=== PATIENT | female | born 1930 | race Caucasian/White ===

== ENCOUNTER → 2016-09-30 | Outpatient (CLI) | payer OTHER ==
[2016-09-30 08:51] LABS: Basophils # (auto) 0 uL; Basophils % (auto) 0.5 % (0.0-2.0); Eosinophils # (auto) 0.1 uL; Eosinophils % (auto) 1.3 % (0.0-7.0); Hematocrit 43.3 % (36.0-46.0); Hemoglobin 14.3 g/dL (12.2-16.2); Lymphocytes # (auto) 1.4 uL; Lymphocytes % (auto) 20.3 % (10.0-50.0); Mean Corpuscular Hemoglobin 28.8 pg (28.0-32.0); Mean Corpuscular Hgb Conc. 32.9 g/dL (32.0-36.0); Mean Corpuscular Volume 87.7 fL (80.0-100.0); Mean Platelet Volume 7.9 fL (7.4-10.4); Monocytes # (auto) 0.6 uL; Monocytes % (auto) 8.3 % (0.0-12.0); Neutrophils # (auto) 4.7 uL; Neutrophils % (auto) 69.6 % (37.0-80.0); Platelet Count (auto) 356 10^3/uL (140-450); Red Cell Distribution Width 14.2 % (11.6-16.0); White Blood Cell 6.8 10^3/uL (4.4-10.8)
[2016-09-30 09:02] LABS: Urine Bilirubin Negative (Negative); Urine Color Yellow (Yellow); Urine Glucose Normal (Normal); Urine Hyaline Cast FEW /lpf (0 - 2); Urine Ketone Negative (Negative); Urine Mucus FEW (None Seen); Urine Nitrite Negative (Negative); Urine RBC 4 /hpf (0 - 4); Urine Squamous Epithelial Cell FEW /hpf (<5); Urine Urobilinogen Normal (Negative)
[2016-09-30 09:05] LABS: Albumin 3.6 g/dL (3.4-5.0); BUN/Creatinine Ratio 14.9; Calcium 8.4 mg/dL (8.5-10.1); Potassium 3.7 mmol/L (3.5-5.1); Total Protein 8.2 g/dL (6.4-8.2)
[2016-09-30 09:16] LABS: Urine Blood 1+ /uL (Negative)
== END | disposition home or self-care (01) ==
LOC: LAB 08:01
DX: I10 Essential (primary) hypertension (principal)
CPT/HCPCS: 36415; 80053; 80061; 81001; 84443; 85025

== ENCOUNTER 2017-02-27 12:10 | Inpatient (IN) | payer OTHER ==
[~2017-02-27] VITALS: Ht 165.1 cm; Wt 77.5 kg
[2017-02-27 12:59] VITALS: BP 112/75
[2017-02-27] MEDS ORDERED: CYCL0.05 EACHEYE (13:21)
[2017-02-27] MEDS ORDERED: LEV50T PO (13:21)
[2017-02-27] MEDS ORDERED: VER40T PO (13:21)
[2017-02-27] MEDS ORDERED: FLUT500M2 INH (13:21)
[2017-02-27] MEDS ORDERED: MORPHINE SULF INJ 2 MG/ML SYRINGE 1ML IV PRN ×2 (13:30→14:30)
[2017-02-27] MEDS ORDERED: NITROGLYCERIN 0.4 MG SL TAB SL PRN ×2 (13:30→14:30)
[2017-02-27] MEDS ORDERED: ONDANSETRON HCL 4 MG/2 ML VIAL IV PRN (14:30)
[2017-02-27] MEDS ORDERED: LEVOTHYROXINE SODIUM 50 MCG TAB PO ONE (14:45)
[2017-02-27] MEDS ORDERED: VERAPAMIL HCL 40 MG TAB PO ONE (14:45)
[2017-02-27] MEDS ORDERED: BUDESONIDE (INHALATION) 0.5 MG/2 ML NEB NEB ONE (14:45)
[2017-02-27 17:00] VITALS: BP 146/98
[2017-02-27] MEDS ORDERED: PNEUMOCOCCAL VACC POLYS 25 MCG/0.5 ML VIAL IM ONE (17:15)
[2017-02-27] MEDS: MORPHINE SULF INJ 2 MG/ML SYRINGE 1ML IV PRN (18:21)
[2017-02-27 19:11] LABS: Urine Bilirubin Negative (Negative); Urine Blood 3+ /uL (Negative); Urine Color PINK (Yellow); Urine Glucose Normal (Normal); Urine Ketone 2+ (Negative); Urine Mucus FEW (None Seen); Urine Nitrite Negative (Negative); Urine RBC 206 /hpf (0 - 4); Urine pH 5.5 (5.0-8.0)
[2017-02-27 20:00] VITALS: BP 135/83
[2017-02-27 22:00] VITALS: BP 135/83
[2017-02-27] MEDS: VERAPAMIL HCL 40 MG TAB PO SCH (22:09)
[2017-02-27] MEDS: BUDESONIDE (INHALATION) 0.5 MG/2 ML NEB NEB SCH (22:21)
[2017-02-28 03:09] VITALS: BP 135/83
[2017-02-28 05:00] VITALS: BP 156/102
[2017-02-28 05:55] LABS: Basophils # (auto) 0 uL; Basophils % (auto) 0.3 % (0.0-2.0); CONDITION Y; Eosinophils # (auto) 0.2 uL; Eosinophils % (auto) 1.8 % (0.0-7.0); Hematocrit 37.8 % (36.0-46.0); Hemoglobin 12.7 g/dL (12.2-16.2); Lymphocytes # (auto) 0.7 uL; Lymphocytes % (auto) 7.4 % (10.0-50.0); Mean Corpuscular Hemoglobin 29.9 pg (28.0-32.0); Mean Corpuscular Hgb Conc. 33.5 g/dL (32.0-36.0); Mean Corpuscular Volume 89.1 fL (80.0-100.0); Monocytes # (auto) 0.8 uL; Monocytes % (auto) 8.9 % (0.0-12.0); Neutrophils # (auto) 7.6 uL; Neutrophils % (auto) 81.6 % (37.0-80.0); Platelet Count (auto) 189 10^3/uL (140-450); Red Cell Distribution Width 14.5 % (11.6-16.0); White Blood Cell 9.3 10^3/uL (4.4-10.8)
[2017-02-28] MEDS: VERAPAMIL HCL 40 MG TAB PO SCH ×3 (06:00→21:13)
[2017-02-28 06:05] LABS: INR 1.06 (0.9-1.15); Partial Thromboplastin Time 29.8 sec (22.64-33.71); Prothrombin Time 11.6 sec (9.37-12.3)
[2017-02-28] MEDS: LEVOTHYROXINE SODIUM 50 MCG TAB PO SCH (06:25)
[2017-02-28 07:38] LABS: BUN/Creatinine Ratio 30.3; Calcium 8.4 mg/dL (8.5-10.1); Potassium 3.6 mmol/L (3.5-5.1)
[2017-02-28] MEDS: MORPHINE SULF INJ 2 MG/ML SYRINGE 1ML IV PRN ×2 (08:01→15:00)
[2017-02-28 09:00] VITALS: BP 132/75
[2017-02-28] MEDS: BUDESONIDE (INHALATION) 0.5 MG/2 ML NEB NEB SCH ×2 (09:13→18:49)
[2017-02-28] MEDS: LORazepam 0.5 MG TAB PO PRN (10:18)
[2017-02-28 13:00] VITALS: BP 124/77
[2017-02-28] MEDS ORDERED: POTASSIUM CHL 20 Meq TABLET PO ONE (13:00)
[2017-02-28] MEDS ORDERED: FUROSEMIDE 20 MG TAB PO ONE (13:00)
[2017-02-28 18:05] VITALS: BP 126/82
[2017-02-28] MEDS: DOCUSATE SOD 100 MG CAP PO SCH (21:13)
[2017-02-28 21:24] VITALS: BP 135/66
[2017-03-01] VITALS (7 sets, daily range): BP systolic 122–141; BP diastolic 70–90
[2017-03-01] MEDS: VERAPAMIL HCL 40 MG TAB PO SCH ×3 (06:17→21:16)
[2017-03-01] MEDS: LEVOTHYROXINE SODIUM 50 MCG TAB PO SCH (06:17)
[2017-03-01 06:49] LABS: Calcium 8.1 mg/dL (8.5-10.1); Potassium 3.6 mmol/L (3.5-5.1)
[2017-03-01 06:52] LABS: BUN/Creatinine Ratio 29.7
[2017-03-01] MEDS: HYDROcodone-ACET 5/325MG TAB PO PRN (08:01)
[2017-03-01] MEDS: BUDESONIDE (INHALATION) 0.5 MG/2 ML NEB NEB SCH ×2 (09:21→21:54)
[2017-03-01] MEDS: FUROSEMIDE 20 MG TAB PO SCH (10:32)
[2017-03-01] MEDS: DOCUSATE SOD 100 MG CAP PO SCH ×3 (10:32→22:00)
[2017-03-01] MEDS: POTASSIUM CHL 20 Meq TABLET PO SCH (10:32)
[2017-03-01] MEDS: LORazepam 0.5 MG TAB PO PRN (11:34)
[2017-03-02] VITALS (7 sets, daily range): BP systolic 124–132; BP diastolic 75–88
[2017-03-02] MEDS: MORPHINE SULF INJ 2 MG/ML SYRINGE 1ML IV PRN (03:35)
[2017-03-02] MEDS: VERAPAMIL HCL 40 MG TAB PO SCH ×3 (05:54→21:41)
[2017-03-02] MEDS: LEVOTHYROXINE SODIUM 50 MCG TAB PO SCH (06:33)
[2017-03-02] MEDS: FUROSEMIDE 20 MG TAB PO SCH (10:00)
[2017-03-02] MEDS: DOCUSATE SOD 100 MG CAP PO SCH ×2 (10:00→21:41)
[2017-03-02] MEDS: POTASSIUM CHL 20 Meq TABLET PO SCH (10:00)
[2017-03-02] MEDS: BUDESONIDE (INHALATION) 0.5 MG/2 ML NEB NEB SCH (10:28)
[2017-03-02] MEDS ORDERED: ceFAZolin 1GM/50ML D5W 100 ML IV ONE (12:30)
[2017-03-02] MEDS ORDERED: TETRACAINE 1% INJ 2 ML VIAL IJ ONE (12:35)
[2017-03-02] MEDS ORDERED: PHENYLEPHRINE HCL 10 MG/ML VL IV ONE (12:44)
[2017-03-02] MEDS ORDERED: MIDAZOLAM HCL 1MG/1ML-2 ML VIAL ONE (12:50)
[2017-03-02] MEDS ORDERED: fentaNYL CITRATE 100 MCG/2 ML VL ONE (12:50)
[2017-03-02] MEDS ORDERED: ONDANSETRON HCL 4 MG/2 ML VIAL IV ONE (13:00)
[2017-03-02] MEDS ORDERED: MIDAZOLAM HCL 1MG/1ML-2 ML VIAL IV PRN (13:00)
[2017-03-02] MEDS ORDERED: ACCU-CHEK COMFORT CURVE STRIP VI ONE (13:00)
[2017-03-02] MEDS ORDERED: LABETALOL HCL 5 MG/ML 4ML SYRINGE IV PRN (13:00)
[2017-03-02] MEDS ORDERED: hydrALAZINE HCL 20 MG/ML VL IV PRN (13:00)
[2017-03-02] MEDS ORDERED: KETOROLAC TROMETH 30 MG/ML 1ML VIAL IV ONE (13:00)
[2017-03-02] MEDS ORDERED: ePHEDrine SULFATE 50 MG/ML AMP IV PRN (13:00)
[2017-03-02] MEDS ORDERED: MORPHINE SULF INJ 2 MG/ML SYRINGE 1ML IV PRN (13:00)
[2017-03-02] MEDS ORDERED: HYDROmorphone HCL 2 MG/ML VL IV PRN (13:00)
[2017-03-02] MEDS ORDERED: PROPOFOL 10 MG/ML 20 ML IV ONE (13:24)
[2017-03-02] MEDS ORDERED: DEXAMETHASONE SOD PHOS 10MG/1ML VIAL INJ ONE (13:24)
[2017-03-02] MEDS: ceFAZolin 1GM/50ML D5W 50 ML IV SCH (21:40)
[2017-03-03 05:00] VITALS: BP 144/81
[2017-03-03] MEDS: ceFAZolin 1GM/50ML D5W 50 ML IV SCH ×3 (05:36→21:22)
[2017-03-03] MEDS: VERAPAMIL HCL 40 MG TAB PO SCH ×3 (05:37→21:22)
[2017-03-03 05:59] LABS: Hemoglobin 12.4 g/dL (12.2-16.2)
[2017-03-03] MEDS: LEVOTHYROXINE SODIUM 50 MCG TAB PO SCH (06:21)
[2017-03-03 09:20] VITALS: BP 127/65
[2017-03-03] MEDS: BUDESONIDE (INHALATION) 0.5 MG/2 ML NEB NEB SCH ×2 (09:35→19:10)
[2017-03-03] MEDS: LORazepam 0.5 MG TAB PO PRN (09:54)
[2017-03-03] MEDS: ENOXAPARIN SOD 40 MG/0.4 ML SYRINGE SC SCH (09:55)
[2017-03-03] MEDS: FUROSEMIDE 20 MG TAB PO SCH (09:56)
[2017-03-03] MEDS: POTASSIUM CHL 20 Meq TABLET PO SCH (09:56)
[2017-03-03] MEDS: DOCUSATE SOD 100 MG CAP PO SCH ×2 (09:57→21:23)
[2017-03-03 13:00] VITALS: BP 129/79
[2017-03-03 16:29] VITALS: BP 137/76
[2017-03-03 22:00] VITALS: BP 137/77
[2017-03-04 00:27] VITALS: BP 137/77
[2017-03-04 05:00] VITALS: BP 130/70
[2017-03-04] MEDS: ceFAZolin 1GM/50ML D5W 50 ML IV SCH ×2 (05:35→14:03)
[2017-03-04] MEDS: VERAPAMIL HCL 40 MG TAB PO SCH ×3 (05:36→21:18)
[2017-03-04 05:52] LABS: Basophils # (auto) 0 uL; Basophils % (auto) 0.4 % (0.0-2.0); CONDITION Y; Eosinophils # (auto) 0 uL; Eosinophils % (auto) 0.4 % (0.0-7.0); Hematocrit 34.8 % (36.0-46.0); Hemoglobin 11.7 g/dL (12.2-16.2); Lymphocytes # (auto) 0.7 uL; Lymphocytes % (auto) 6.6 % (10.0-50.0); Mean Corpuscular Hemoglobin 30.2 pg (28.0-32.0); Mean Corpuscular Hgb Conc. 33.7 g/dL (32.0-36.0); Mean Corpuscular Volume 89.6 fL (80.0-100.0); Mean Platelet Volume 8.9 fL (7.4-10.4); Monocytes # (auto) 1.4 uL; Monocytes % (auto) 13.5 % (0.0-12.0); Neutrophils # (auto) 8.1 uL; Neutrophils % (auto) 79.1 % (37.0-80.0); Platelet Count (auto) 217 10^3/uL (140-450); Red Cell Distribution Width 13.8 % (11.6-16.0); White Blood Cell 10.2 10^3/uL (4.4-10.8)
[2017-03-04 06:09] LABS: BUN/Creatinine Ratio 29.7; Calcium 7.8 mg/dL (8.5-10.1); Potassium 3.4 mmol/L (3.5-5.1)
[2017-03-04] MEDS: LEVOTHYROXINE SODIUM 50 MCG TAB PO SCH (06:24)
[2017-03-04] MEDS: BUDESONIDE (INHALATION) 0.5 MG/2 ML NEB NEB SCH ×2 (06:42→18:58)
[2017-03-04 08:45] VITALS: BP 117/69
[2017-03-04] MEDS: ENOXAPARIN SOD 40 MG/0.4 ML SYRINGE SC SCH (10:10)
[2017-03-04] MEDS: FUROSEMIDE 20 MG TAB PO SCH (10:11)
[2017-03-04] MEDS: DOCUSATE SOD 100 MG CAP PO SCH ×2 (10:11→21:18)
[2017-03-04] MEDS: POTASSIUM CHL 20 Meq TABLET PO SCH (10:11)
[2017-03-04] MEDS: LORazepam 0.5 MG TAB PO PRN (10:18)
[2017-03-04] MEDS ORDERED: POTASSIUM CHL 20 Meq TABLET PO ONE (10:30)
[2017-03-04] MEDS: HYDROcodone-ACET 5/325MG TAB PO PRN (10:48)
[2017-03-04 13:00] VITALS: BP 111/67
[2017-03-04 17:00] VITALS: BP 113/68
[2017-03-04 21:03] VITALS: BP 122/60
[2017-03-05 05:22] VITALS: BP 119/72
[2017-03-05] MEDS: VERAPAMIL HCL 40 MG TAB PO SCH ×3 (06:06→22:20)
[2017-03-05] MEDS: LEVOTHYROXINE SODIUM 50 MCG TAB PO SCH (06:28)
[2017-03-05 08:13] LABS: Hematocrit 34.3 % (36.0-46.0); Hemoglobin 11.7 g/dL (12.2-16.2)
[2017-03-05 09:00] VITALS: BP 114/74
[2017-03-05] MEDS: ENOXAPARIN SOD 40 MG/0.4 ML SYRINGE SC SCH (10:00)
[2017-03-05] MEDS: DOCUSATE SOD 100 MG CAP PO SCH ×2 (10:00→22:00)
[2017-03-05] MEDS: LORazepam 0.5 MG TAB PO PRN ×2 (10:02→17:56)
[2017-03-05] MEDS: POTASSIUM CHL 20 Meq TABLET PO SCH (10:02)
[2017-03-05] MEDS: FUROSEMIDE 20 MG TAB PO SCH (10:02)
[2017-03-05] MEDS: BUDESONIDE (INHALATION) 0.5 MG/2 ML NEB NEB SCH ×2 (10:08→22:00)
[2017-03-05] MEDS: HYDROcodone-ACET 5/325MG TAB PO PRN (12:41)
[2017-03-05 14:00] VITALS: BP 120/70
[2017-03-05 15:51] VITALS: BP 113/67
[2017-03-05] MEDS ORDERED: POTASSIUM CHL 20 Meq TABLET PO ONE (16:45)
[2017-03-05] MEDS ORDERED: FUROSEMIDE 20 MG/2 ML VIAL IV ONE (16:45)
[2017-03-05 17:00] VITALS: BP 113/67
[2017-03-05 22:00] VITALS: BP 112/71
[2017-03-06] MEDS: BUDESONIDE (INHALATION) 0.5 MG/2 ML NEB NEB SCH ×2 (00:23→10:28)
[2017-03-06 05:00] VITALS: BP 113/60
[2017-03-06] MEDS: LEVOTHYROXINE SODIUM 50 MCG TAB PO SCH (06:47)
[2017-03-06] MEDS: VERAPAMIL HCL 40 MG TAB PO SCH ×3 (06:47→22:09)
[2017-03-06 09:00] VITALS: BP 128/65
[2017-03-06] MEDS: DOCUSATE SOD 100 MG CAP PO SCH ×2 (10:00→22:07)
[2017-03-06] MEDS: LORazepam 0.5 MG TAB PO PRN (10:38)
[2017-03-06] MEDS: POTASSIUM CHL 20 Meq TABLET PO SCH (10:49)
[2017-03-06] MEDS: FUROSEMIDE 20 MG TAB PO SCH (10:49)
[2017-03-06] MEDS: ENOXAPARIN SOD 40 MG/0.4 ML SYRINGE SC SCH (10:50)
[2017-03-06] MEDS ORDERED: LORazepam 0.5 MG TAB PO PRN (12:00)
[2017-03-06] MEDS ORDERED: MORPHINE SULF INJ 2 MG/ML SYRINGE 1ML IV PRN ×2 (12:00)
[2017-03-06 13:00] VITALS: BP 121/66
[2017-03-06 17:00] VITALS: BP 118/76
[2017-03-06 20:00] VITALS: BP 123/70
[2017-03-06 22:00] VITALS: BP 122/73
[2017-03-07] VITALS (7 sets, daily range): BP systolic 111–123; BP diastolic 63–74
[2017-03-07] MEDS: VERAPAMIL HCL 40 MG TAB PO SCH ×3 (06:05→22:00)
[2017-03-07] MEDS: LEVOTHYROXINE SODIUM 50 MCG TAB PO SCH (06:05)
[2017-03-07 06:53] LABS: Basophils # (auto) 0 uL; Basophils % (auto) 0.5 % (0.0-2.0); CONDITION Y; Eosinophils # (auto) 0.2 uL; Eosinophils % (auto) 1.8 % (0.0-7.0); Hematocrit 38.7 % (36.0-46.0); Lymphocytes # (auto) 1.3 uL; Lymphocytes % (auto) 14.5 % (10.0-50.0); Mean Corpuscular Hemoglobin 30.1 pg (28.0-32.0); Mean Corpuscular Hgb Conc. 33.7 g/dL (32.0-36.0); Mean Corpuscular Volume 89.4 fL (80.0-100.0); Mean Platelet Volume 9.1 fL (7.4-10.4); Monocytes % (auto) 11.3 % (0.0-12.0); Neutrophils # (auto) 6.2 uL; Neutrophils % (auto) 71.9 % (37.0-80.0); Platelet Count (auto) 360 10^3/uL (140-450); Red Cell Distribution Width 13.3 % (11.6-16.0); White Blood Cell 8.6 10^3/uL (4.4-10.8)
[2017-03-07 07:20] LABS: BUN/Creatinine Ratio 30.6; Calcium 8.2 mg/dL (8.5-10.1); Potassium 3.8 mmol/L (3.5-5.1)
[2017-03-07] MEDS: DOCUSATE SOD 100 MG CAP PO SCH ×2 (10:27→22:52)
[2017-03-07] MEDS: POTASSIUM CHL 20 Meq TABLET PO SCH (10:27)
[2017-03-07] MEDS: FUROSEMIDE 20 MG TAB PO SCH (10:28)
[2017-03-07] MEDS: ENOXAPARIN SOD 40 MG/0.4 ML SYRINGE SC SCH (10:28)
[2017-03-07] MEDS: BUDESONIDE (INHALATION) 0.5 MG/2 ML NEB NEB SCH ×2 (10:42→22:00)
[2017-03-07 11:49] LABS: Allen Test Yes; Base Excess 7.3 mmol/L (-2.0-2.0); Blood 02Sat 93.3 % (96-100); Blood COHb 0.7 % (0.5-1.5); Blood MetHb 0.4 % (0.0-1.5); HCO3 30.2 mmol/L (22-26.0); HHb 6.6 % (0.0-5.0); MODE ROOM AIR; O2Hb 92.3 % (94.0-97.0); PCO2 36.8 mmHg (35.0-45.0); PCO2(T) 36.8 mmHg (35.0-45.0); PO2 66.6 mmHg (80.0-100.0); PO2(T) 66.6 mmHg (80.0-100.0); Room 0245T; Sample Type Arterial; pH 7.532 (7.350-7.450)
[2017-03-08] MEDS: BUDESONIDE (INHALATION) 0.5 MG/2 ML NEB NEB SCH (05:35)
[2017-03-08] MEDS: VERAPAMIL HCL 40 MG TAB PO SCH ×2 (06:00→13:57)
[2017-03-08] MEDS: LEVOTHYROXINE SODIUM 50 MCG TAB PO SCH (06:11)
[2017-03-08 08:00] VITALS: BP 137/80
[2017-03-08] MEDS: HYDROcodone-ACET 5/325MG TAB PO PRN ×2 (08:29→16:08)
[2017-03-08 08:52] VITALS: BP 134/73
[2017-03-08] MEDS: DOCUSATE SOD 100 MG CAP PO SCH (10:26)
[2017-03-08] MEDS: FUROSEMIDE 20 MG TAB PO SCH (10:26)
[2017-03-08] MEDS: POTASSIUM CHL 20 Meq TABLET PO SCH (10:26)
[2017-03-08] MEDS: ENOXAPARIN SOD 40 MG/0.4 ML SYRINGE SC SCH (10:27)
[2017-03-08 13:00] VITALS: BP 110/66
[2017-03-08 16:49] VITALS: BP 125/88
== END 2017-03-08 19:30 | disposition home health service (06) | DRG 469 ==
LOC: TELE-E-ADS 12:10 → TELE-EAST 17:00
PROVIDERS: ADMIT Internal Medicine; ATTEND Internal Medicine
PROC: 0MBM0ZZ Excision of Left Hip Bursa and Ligament, Open Approach (ICD-10-PCS; 2017-03-02)
PROC: 0SRS0JZ Replacement of Left Hip Joint, Femoral Surface with Synthetic Substitute, Open Approach (ICD-10-PCS; principal; 2017-03-02 12:59)
DX: S72.012A Unspecified intracapsular fracture of left femur, initial encounter for closed fracture (principal); G93.41 Metabolic encephalopathy; I50.32 Chronic diastolic (congestive) heart failure; W19.XXXA Unspecified fall, initial encounter; J45.909 Unspecified asthma, uncomplicated; E03.9 Hypothyroidism, unspecified; Z85.3 Personal history of malignant neoplasm of breast; Y99.8 Other external cause status; Y92.89 Other specified places as the place of occurrence of the external cause; Y93.89 Activity, other specified; E66.9 Obesity, unspecified; Z68.28 Body mass index [BMI] 28.0-28.9, adult; I27.2 Other secondary pulmonary hypertension; I11.0 Hypertensive heart disease with heart failure; Z96.641 Presence of right artificial hip joint; M70.62 Trochanteric bursitis, left hip; I48.2 Chronic atrial fibrillation; Z23 Encounter for immunization
CPT/HCPCS: 36415; 36600; 70450; 71010; 73501; 73502; 73700; 80048; 81001; 82805; 84443; 85014; 85018; 85025; 85610; 85730; 86850; 86900; 86901; 87081; 88311; 92610; 93005; 93306; 94640; 97163; J0690; J1100; J2250; J2405; J2704